=== PATIENT | male | born 1980 | race Caucasian/White ===

== ENCOUNTER 2023-10-16 20:02 | Emergency (ER) | payer SELFPAY | END 2023-10-16 22:58 | disposition home or self-care (01) | LOC: MW.ED 20:02 | DX: S63.502A Unspecified sprain of left wrist, initial encounter (principal); Z88.5 Allergy status to narcotic agent; W00.0XXA Fall on same level due to ice and snow, initial encounter; Y93.01 Activity, walking, marching and hiking | CPT/HCPCS: 73110-26-LT; 73110-LT; 99283 ==